=== PATIENT | male | born 1960 | race Native Hawaiian/Other Pacific Islander ===

== ENCOUNTER 2018-02-02 00:02 | Emergency (ER) | payer MEDICARE, MEDICAID ==
--- NOTE | 2018-02-02 01:07 | EDM.PDOC ---
ED HPI GENERAL MEDICAL PROBLEM - General Chief Complaint: Upper Extremity Injury/Pain Stated Complaint: RIGHT SHOULDER PAIN FELL OFF LADDER Time Seen by Provider: 02/02/18 00:32 Source of Information: Reports: Patient History Limitations: Reports: No Limitations - History of Present Illness INITIAL COMMENTS - FREE TEXT/NARRATIVE: Fell about 8-10 ft off ladder at 2 pm yesterday. Pain to shoulder and clavicle on RT. 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: none Right Shoulder Pain Score (Numeric/FACES): 8 - Related Data Allergies Allergy/AdvReac Type Severity Reaction Status Date / Time [place] Allergy Anaphylactic Verified 02/02/18 00:20 Shock cyclobenzaprine HCl Allergy Rash Verified 02/02/18 00:20 [From Flexeril] meperidine HCl [From Demerol] Allergy Hives Verified 02/02/18 00:20 venison Allergy Anaphylactic Uncoded 02/02/18 00:20 Shock Home Meds: Home Meds levETIRAcetam [Keppra] 500 mg PO DAILY 07/12/14 [History] Aspirin [Anup Chewable Aspirin] 81 mg PO DAILY 08/14/14 [History] EPINEPHrine [Epinephrine] 0.15 mg IM ONETIME PRN 12/03/14 [History] Past Medical History Musculoskeletal History: Reports: Fracture, Other (See Below) Other Musculoskeletal History: Left shoulder Neurological History: Reports: Seizure - Infectious Disease History Infectious Disease History: Reports: Chicken Pox - Past Surgical History Neurological Surgical History: Reports: C-Spine, Spinal Fusion Social & Family History - Family History Family Medical History: Noncontributory - Tobacco Use Smoking Status *Q: Current Every Day Smoker Years of Tobacco use: 45 Packs/Tins Daily: 1 Second Hand Smoke Exposure: No - Caffeine Use Caffeine Use: Reports: Coffee - Alcohol Use Days Per Week of Alcohol Use: 2 Number of Drinks Per Day: 4 Total Drinks Per Week: 8 - Recreational Drug Use Recreational Drug Use: No Review of Systems - Review of Systems Review Of Systems: ROS reveals no pertinent complaints other than HPI. ED EXAM, GENERAL - Physical Exam Exam: See Below Exam Limited By: No Limitations General Appearance: Alert, WD/WN, Mild Distress Neck: Supple Respiratory/Chest: No Respiratory Distress Peripheral Pulses: 2+: Radial (R) Extremities: Other (good passive rom rt shoulder but caquses pain in clavicle area, AC and SC joints. Tender midshaft of clavicle) Neurological: No Motor/Sensory Deficits Course - Vital Signs Last Recorded V/S: Last Vital Signs Temp 36.9 C 02/02/18 00:28 Pulse 85 02/02/18 00:28 Resp 12 02/02/18 00:28 BP 113/80 02/02/18 00:28 Pulse Ox 96 02/02/18 00:28 - Orders/Labs/Meds Orders: Active Orders 24 hr Category Date Time Status Clavicle Rt [CR] Stat Exams 02/02/18 00:32 Ordered Shoulder Comp Rt [CR] Stat Exams 02/02/18 00:32 Ordered - Radiology Interpretation Free Text/Narrative:: RT clavicle and shoulder. no fracture or dislocation Departure - Departure Time of Disposition: 01:05 Disposition: Home, Self-Care 01 Condition: Fair Clinical Impression: Right shoulder strain - Discharge Information Referrals: PCP,None [Primary Care Provider] - Additional Instructions: Wear the sling for comfort. Take your arm out several times each day and do gentle range of motion exercises. Apply cold pack for 20 minutes several times per day. Tylenol or ibuprofen for pain. This should get better quickly. - My Orders Last 24 Hours: My Active Orders 02/02/18 00:32 Clavicle Rt [CR] Stat Shoulder Comp Rt [CR] Stat - Assessment/Plan Last 24 Hours: My Active Orders 02/02/18 00:32 Clavicle Rt [CR] Stat Shoulder Comp Rt [CR] Stat
[2018-02-02 01:18] VITALS: BP 113/80
--- NOTE | 2018-02-03 08:50 | CR ---
Shoulder Comp Rt CLINICAL HISTORY: Pain, fall FINDINGS: There is no acute fracture or dislocation in the right shoulder. There is spurring at the A C joint. There are some mild osteophytic change in the glenohumeral joint Impression: Osteoarthritic change AC joint spurring
--- NOTE | 2018-02-03 08:50 | CR ---
Clavicle Rt CLINICAL HISTORY: Pain, fall FINDINGS: There is no acute fracture or dislocation in the right shoulder. There is moderate spurring at the AC joint. Glenohumeral joint appears intact Impression: Osteoarthritic change and spurring at the AC joint
== END 2018-02-02 01:20 | disposition home or self-care (01) ==
LOC: JP.ED 00:02
DX: S46.911A Strain of unspecified muscle, fascia and tendon at shoulder and upper arm level, right arm, initial encounter (principal); Z88.8 Allergy status to other drugs, medicaments and biological substances; F17.210 Nicotine dependence, cigarettes, uncomplicated; Z79.82 Long term (current) use of aspirin; W11.XXXA Fall on and from ladder, initial encounter
CPT/HCPCS: 73000-26-RT; 73000-RT; 73030-26-RT; 73030-RT; 99284

== ENCOUNTER 2019-11-08 16:52 | Emergency (ER) | payer MEDICAID, MEDICARE ==
[2019-11-08 17:15] VITALS: BP 108/69; PULSE 97
[2019-11-08] MEDS ORDERED: Sodium Chloride 0.9% 10 ML Syringe FLUSH PRN (17:50)
[2019-11-08] MEDS ORDERED: cefTRIAXone 1 GM in Sodium Chloride 0.9% 50 ML IV ONE (17:51)
--- NOTE | 2019-11-08 17:55 | EDM.PDOC ---
ED HPI GENERAL MEDICAL PROBLEM - General Chief Complaint: Bite:Animal, Insect Stated Complaint: SPIDER BITE RIGHT FOOT Time Seen by Provider: 11/08/19 17:50 Source of Information: Reports: Patient History Limitations: Reports: No Limitations - History of Present Illness INITIAL COMMENTS - FREE TEXT/NARRATIVE: pt has a spider bite on the dorsum of the rt foot. Onset: Gradual, Other (pt had a spider bite on while [place] the cities[place] ) Duration: Hour(s): Location: Reports: Lower Extremity, Right Associated Symptoms: Reports: No Other Symptoms Right Foot Pain Score (Numeric/FACES): 8 - Related Data Allergies Allergy/AdvReac Type Severity Reaction Status Date / Time [place] Allergy Anaphylactic Verified 11/08/19 17:18 Shock cyclobenzaprine HCl Allergy Rash Verified 11/08/19 17:18 [From Flexeril] meperidine HCl [From Demerol] Allergy Hives Verified 11/08/19 17:18 venison Allergy Anaphylactic Uncoded 11/08/19 17:18 Shock Home Meds: Home Meds levETIRAcetam [Keppra] 500 mg PO DAILY 07/12/14 [History] Aspirin [Anup Chewable Aspirin] 81 mg PO DAILY 08/14/14 [History] EPINEPHrine [Epinephrine] 0.15 mg IM ONETIME PRN 12/03/14 [History] Past Medical History HEENT History: Reports: None Cardiovascular History: Reports: High Cholesterol Respiratory History: Reports: Asthma, COPD Gastrointestinal History: Reports: GERD Genitourinary History: Reports: None Musculoskeletal History: Reports: Fracture, Other (See Below) Other Musculoskeletal History: Left shoulder Neurological History: Reports: Seizure Endocrine/Metabolic History: Reports: None Oncologic (Cancer) History: Reports: None Dermatologic History: Reports: None - Infectious Disease History Infectious Disease History: Reports: Chicken Pox - Past Surgical History GI Surgical History: Reports: Shankar Fundoplication Neurological Surgical History: Reports: C-Spine, Spinal Fusion, Other (See Below) Other Neurological Surgeries/Procedures: rods pins and screw Social & Family History - Family History Family Medical History: Noncontributory - Tobacco Use Smoking Status *Q: Current Every Day Smoker Years of Tobacco use: 10 Packs/Tins Daily: 1 - Caffeine Use Caffeine Use: Reports: Coffee - Recreational Drug Use Recreational Drug Use: No ED ROS GENERAL - Review of Systems Review Of Systems: See Below Constitutional: Reports: No Symptoms HEENT: Reports: No Symptoms Respiratory: Reports: No Symptoms Cardiovascular: Reports: No Symptoms Endocrine: Reports: No Symptoms GI/Abdominal: Reports: No Symptoms : Reports: No Symptoms Musculoskeletal: Reports: Other ( infection on the dorsum of the rt foot from a spider bite. There is some drainage oozing from the foot.) Skin: Reports: No Symptoms ED EXAM, ANIMAL BITE - Physical Exam Exam: See Below Text/Narrative:: pt has a infection on he dorsum of the rt foot with a large area of cellulits . 4 inches in diameter. Exam Limited By: No Limitations General Appearance: Alert, Anxious, Mild Distress Extremities: Other (pt has alot of redness in a 4 inch in diameter there is oozing from the center of the wound. a culture was obtained. ) Neurological: Alert, Oriented, Normal Cognition Course - Vital Signs Last Recorded V/S: Last Vital Signs Temp 36.5 C 11/08/19 17:17 Pulse 97 11/08/19 17:17 Resp 14 11/08/19 17:17 BP 108/69 11/08/19 17:17 Pulse Ox 97 11/08/19 17:17 - Orders/Labs/Meds Orders: Active Orders 24 hr Category Date Time Status CULTURE WOUND + SMEAR [RM] Stat Lab 11/08/19 17:52 Results Sodium Chloride 0.9% [Saline Flush] Med 11/08/19 17:50 Active 10 ml FLUSH ASDIRECTED PRN Saline Lock Insert [OM.PC] Routine Oth 11/08/19 17:50 Ordered Medication Orders Sodium Chloride (Saline Flush) 10 ml FLUSH ASDIRECTED PRN PRN Reason: Keep Vein Open Last Admin: 11/08/19 18:07 Dose: 10 ml Documented by: PREILOR Labs: Laboratory Tests 11/08/19 Range/Units 18:09 WBC 9.7 (4.5-11.0) K/uL RBC 4.65 (4.30-5.90) M/uL Hgb 14.4 (12.0-15.0) g/dL Hct 43.6 (40.0-54.0) % MCV 94 (80-98) fL MCH 31 (27-31) pg MCHC 33 (32-36) % Plt Count 220 (150-400) K/uL Neut % (Auto) 76 H (36-66) % Lymph % (Auto) 14 L (24-44) % [place] % (Auto) 9 H (2-6) % Eos % (Auto) 1 L (2-4) % Baso % (Auto) 0 (0-1) % Meds: Medications Generic Name Dose Route Start Last Admin Trade Name Freq PRN Reason Stop Dose Admin Sodium Chloride 10 ml 11/08/19 17:50 11/08/19 18:07 Saline Flush FLUSH 10 ml ASDIRECTED PRN Administration Keep Vein Open Discontinued Medications Generic Name Dose Route Start Last Admin Trade Name Freq PRN Reason Stop Dose Admin Ceftriaxone Sodium 1 gm/ 50 mls @ 100 mls/hr 11/08/19 17:51 11/08/19 18:06 Sodium Chloride IV 11/08/19 18:20 100 mls/hr ONETIME ONE Administration - Re-Assessments/Exams Free Text/Narrative Re-Assessment/Exam: 11/08/19 18:29 foot was soaked and dressed with bacatracin. Pt was given rocephen 1 gm iv and he will return tomorrow for another gram of rocephen. His wbc is normal. Departure - Departure Time of Disposition: 18:30 Disposition: Home, Self-Care 01 Condition: Fair Clinical Impression: Infected bite wound - Discharge Information Referrals: PCP,None [Primary Care Provider] - Forms: ED Department Discharge Care Plan Goals: rtc tomorrow for another gram of rocephen bactrim ds bid, soak the foot bid in soapy water and dress with bacatracin when pt returns tomorrow the foot should be rechecked. Sepsis Event Note (ED) - Evaluation Sepsis Screening Result: No Definite Risk - Focused Exam Vital Signs: Vital Signs Temp Pulse Resp BP Pulse Ox 11/08/19 17:17 36.5 C 97 14 108/69 97 11/08/19 17:14 36.5 C 97 14 108/69 97 - My Orders Last 24 Hours: My Active Orders 11/08/19 17:50 Sodium Chloride 0.9% [Saline Flush] 10 ml FLUSH ASDIRECTED PRN Saline Lock Insert [OM.PC] Routine 11/08/19 17:52 CULTURE WOUND + SMEAR [RM] Stat - Assessment/Plan Last 24 Hours: My Active Orders 11/08/19 17:50 Sodium Chloride 0.9% [Saline Flush] 10 ml FLUSH ASDIRECTED PRN Saline Lock Insert [OM.PC] Routine 11/08/19 17:52 CULTURE WOUND + SMEAR [RM] Stat
[2019-11-08] MEDS ORDERED: Bacitracin Oint 1 GM U/D Packet TOP ONE (18:36)
== END 2019-11-08 19:05 | disposition home or self-care (01) ==
LOC: JP.ED 16:52
DX: S90.861A Insect bite (nonvenomous), right foot, initial encounter (principal); L08.9 Local infection of the skin and subcutaneous tissue, unspecified; J44.9 Chronic obstructive pulmonary disease, unspecified; R56.9 Unspecified convulsions; F17.210 Nicotine dependence, cigarettes, uncomplicated; Z79.899 Other long term (current) drug therapy; Z91.018 Allergy to other foods; Z88.5 Allergy status to narcotic agent; Z88.8 Allergy status to other drugs, medicaments and biological substances; W57.XXXA Bitten or stung by nonvenomous insect and other nonvenomous arthropods, initial encounter
CPT/HCPCS: 36415; 85025; 87070; 87205; 96365; 99283; J0696; J7050